=== PATIENT | female | born 1965 | race African-American/Black ===

== ENCOUNTER 2019-03-13 10:12 | Inpatient (IN) | payer OTHER ==
[~2019-03-13 10:12] MED LIST: predniSONE 10 MG TABLET (UD) PO ONE
[2019-03-13 10:57] VITALS: BMI 17.6
--- NOTE | 2019-03-13 12:02 | HP ---
CIWA Score Nausea/Vomitin Muscle Tremors: 2 Anxiety: 2 Agitation: 2 Paroxysmal Sweats: 1-Minimal Palms Moist Orientation: 0-Oriented Tacttile Disturbances: 1-Very Mild Itch/Numbness Auditory Disturbances: 1-Very Mild Visual Disturbances: 0-None Headache: 2-Mild CIWA-Ar Total Score: 13 - Admission Criteria OASAS Guidelines: Admission for Medically Managed Detox: Requires at least one of the followin. CIWA greater than 12 2. Seizures within the past 24 hours 3. Delirium tremens within the past 24 hours 4. Hallucinations within the past 24 hours 5. Acute intervention needed for co occurring medical disorder 6. Acute intervention needed for co occurring psychiatric disorder 7. Severe withdrawal that cannot be handled at a lower level of care (continued vomiting, continued diarrhea, abnormal vital signs) requiring intravenous medication and/or fluids 8. Admission ROS S - HPI Chief Complaint: i need help to stop drinking alcohol,cocaine and marijuana Allergies/Adverse Reactions: Allergies Allergy/AdvReac Type Severity Reaction Status Date / Time No Known Allergies Allergy Verified 03/13/19 19:52 History of Present Illness: this 53 years old female with alcohol,cocaine and marijuana dependence,seeking detox,withdrawal symptom, seen at [facility] for asthma seizure alcohol related last 2 days ago syncope alcohol related asthma nicotine dependence 1 pack/day,does not want nicotine dependence weight loss longest period of sobriety 2 months bipolar disorder non compliance with medication plan for out patient program and go back to school Exam Limitations: No Limitations - Ebola screening Have you traveled outside of the country in the last 21 days: No Have you had contact with anyone from an Ebola affected area: No Do you have a fever: No - Review of Systems Constitutional: Loss of Appetite, Malaise, Night Sweats, Changes in sleep, Weakness, Unintentional Wgt. Loss EENT: reports: Tearing, Nose Congestion Respiratory: reports: Other (asthma) Cardiac: reports: Palpitations GI: reports: Diarrhea, Nausea, Abdominal cramping : reports: No Symptoms Reported Musculoskeletal: reports: No Symptoms Reported, Back Pain, Muscle Pain Integumentary: reports: Dryness Neuro: reports: Headache, Tremors Endocrine: reports: No Symptoms Reported Hematology: reports: No Symptoms Reported Psychiatric: reports: No Sypmtoms Reported, Judgement Intact, Mood/Affect Appropiate, Orientated x3 Other Systems: Reviewed and Negative Patient History - Patient Medical History Hx Anemia: No Hx Asthma: Yes (on albuterol inhaler) Hx Chronic Obstructive Pulmonary Disease (COPD): No Hx Cancer: No Hx Cardiac Disorders: No Hx Congestive Heart Failure: No Hx Hypertension: No Hx Hypercholesterolemia: No Hx Pacemaker: No HX Cerebrovascular Accident: No Hx Seizures: Yes (last 03/11/19) Hx Dementia: No Hx Diabetes: No Hx Gastrointestinal Disorders: No Hx Liver Disease: No Hx Genitourinary Disorders: No Hx Sexually Transmitted Disorders: No Hx Renal Disease (ESRD): No Hx Thyroid Disease: No Hx Human Immunodeficiency Virus (HIV): No (lsat 03/07 negative) Hx Hepatitis C: No Hx Depression: No Hx Suicide Attempt: Yes (try to jump from roof at age of 20 years,stopped by mother) Hx Bipolar Disorder: Yes Hx Schizophrenia: No Other Medical History: no suicidal,no homicidal - Patient Surgical History Past Surgical History: No - PPD History Previous Implant?: Yes Documented Results: Negative w/o proof Implanted On Prior [facility] Admission?: No PPD to be Administered?: Yes - Reproductive History Patient is a Female of Child Bearing Age (11 -55 yrs old): Yes Last Menstrual Period: 05/28/14 Patient : No - Smoking Cessation Smoking history: Never smoked Have you smoked in the past 12 months: Yes Aproximately how many cigarettes per day: 20 Cigars Per Day: 0 Hx Chewing Tobacco Use: No Initiated information on smoking cessation: Yes 'Breaking Loose' booklet given: 03/13/19 - Substance & Tx. History Hx Alcohol Use: Yes Hx Substance Use: Yes Substance Use Type: Alcohol, Cocaine, Marijuana Hx Substance Use Treatment: Yes ( 2009 unknown facility) - Substances abused Alcohol Substance route: Oral Frequency: Daily Amount used: 1 pt. vodka, 1 can beer (40 oz) Age of first use: 13 Date of last use: 03/12/19 Marijuana/Hashish Substance route: Smoking Frequency: Daily Amount used: 1 bag Age of first use: 13 Date of last use: 03/12/19 Crack Substance route: Smoking Frequency: Daily Amount used: $100 Age of first use: 19 Date of last use: 03/16/19 Cocaine Substance route: Smoking Frequency: Daily Amount used: $100 Age of first use: 19 Date of last use: 03/16/19 Family Disease History - Family Disease History Family History: Denies Admission Physical Exam [facility] - Vital Signs Vital Signs: Vital Signs - 24 hr 03/13/19 03/13/19 10:44 11:03 Temperature 98 F 98 F Pulse Rate 80 80 Respiratory 18 18 Rate Blood Pressure 131/91 131/91 - Physical General Appearance: Yes: Moderate Distress, Tremorous, Irritable, Sweating, Anxious HEENTM: Yes: Normal ENT Inspection, TIAGO, Pharynx Normal Respiratory: Yes: Normal Breath Sounds, No Respiratory Distress, Wheezing Neck: Yes: Within Normal Limits, Supple, Trachea in good position Breast: Yes: Breast Exam Deferred Cardiology: Yes: Within Normal Limits, Regular Rhythm, S1, S2, Tachycardia Abdominal: Yes: Within Normal Limits, Normal Bowel Sounds, Non Tender, Soft Genitourinary: Yes: Within Normal Limits Back: Yes: Muscle Spasm Musculoskeletal: Yes: Back pain, Muscle Pain Extremities: Yes: Within Normal Limits, Normal Range of Motion, Tremors Neurological: Yes: warehouse distribution specialist II-XII NML intact, Fully Oriented, Alert, Motor Strength 5/5 Integumentary: Yes: Dry Lymphatic: Yes: Within Normal Limits - Diagnostic (1) Alcohol dependence with uncomplicated withdrawal Status: Acute (2) Cocaine dependence Status: Acute (3) Cannabis dependence Status: Acute (4) Acute exacerbation of extrinsic asthma Status: Acute (5) Alcohol related seizure Status: Acute (6) Syncope Status: Acute (7) Dehydration Status: Acute (8) Weight loss Status: Acute (9) Bipolar disorder Status: Acute (10) Suicide attempt Status: Acute Cleared for Admission [facility] - Detox or Rehab [facility] Level of Care: Medically Managed Detox Regimen/Protocol: Librium Breathalyzer - Breathalyzer Breathalyzer: 0 POC Urine test - Test device test lot number: [id number] Expiration date: 07/19/20 - Control test control: Yes - Result Urine Test Results: Negative - NO line present Urine Drug Screen - Test Device Lot number: [id number] Expiration date: 10/18/20 - Control Is test valid?: Yes - Results Drug screen NEGATIVE: No Urine drug screen results: THC-Marijuana Inpatient Rehab Admission - Rehab Decision to Admit Inpatient rehab admission?: No
[2019-03-13] MEDS ORDERED: chlordiazePOXIDE HCL 25 MG CAPSULE PO PRN (12:20)
[2019-03-13] MEDS ORDERED: MAG HYDROX/AL HYDROX/SIMETH 30 ML UNIT-DOSE CUP PO PRN (12:20)
[2019-03-13] MEDS ORDERED: ACETAMINOPHEN 325 MG TABLET (FP) PO PRN ×2 (12:20)
[2019-03-13] MEDS ORDERED: MELATONIN 5 MG TABLETS PO PRN (12:20)
[2019-03-13] MEDS ORDERED: METHOCARBAMOL 500 MG TABLET PO PRN (12:20)
[2019-03-13] MEDS ORDERED: hydrOXYzine PAMOATE 25 MG CAPSULE (FP) PO PRN (12:20)
[2019-03-13] MEDS ORDERED: MAGNESIUM HYDROX 2400MG/30ML ORAL SUSPENSION 30 ML CUP PO PRN (12:20)
[2019-03-13] MEDS ORDERED: MENTHOL/PHENOL 1 EACH UD MM PRN (12:20)
[2019-03-13] MEDS ORDERED: BISMUTH SUBSALICYLATE 262 MG/15 ML BTL PO PRN (12:20)
[2019-03-13] MEDS ORDERED: MAGNESIUM CITRATE 300 ML BOTTLE PO PRN (12:20)
[2019-03-13] MEDS ORDERED: IBUPROFEN 400 MG TABLET (FP) PO PRN (12:20)
[2019-03-13] MEDS ORDERED: ALBUTEROL SO4 8 GM HFA INHALER IH PRN (12:23)
[2019-03-13] MEDS ORDERED: ALBUTEROL SO4 2.5/IPRATROPIUM 0.5 INH SOL 3 ML VIAL.NEB. NEB PRN (12:24)
[2019-03-13] MEDS ORDERED: predniSONE 20 MG TABLET (UD) PO ONE (12:46)
[2019-03-13] MEDS: BUDESONIDE/FORMETEROL FUMARATE 80/4.5 mcg INHALER IH SCH ×2 (13:05→22:22)
[2019-03-13 14:47] LABS: HEMATOCRIT 50.7 % (32.4-45.2); HEMOGLOBIN 16.4 GM/dL (10.7-15.3); MCHC 32.3 g/dl (32.0-36.0); MEAN PLT VOLUME 8.7 fl (7.5-11.1); PLATELET COUNT 211 K/MM3 (134-434); RBC 5.64 M/mm3 (3.60-5.2); RDW 16.1 % (11.6-15.6); WHITE BLOOD COUNT 7.4 K/mm3 (4.0-10.0)
[2019-03-13 14:59] LABS: ALBUMIN 3.9 g/dl (3.4-5.0); ALK PHOS 153 U/L (45-117); ANION GAP 4 MMOL/L (8-16); BILIRUBIN,TOTAL 0.4 mg/dL (0.2-1); BLOOD UREA NITROGEN 22 mg/dL (7-18); CALCIUM 9.2 mg/dL (8.5-10.1); CHLORIDE 99 mmol/L (98-107); CO2 36 mmol/L (21-32); CREATININE 0.5 mg/dL (0.55-1.3); GLUCOSE,RANDOM 79 mg/dL (74-106); POTASSIUM 4.7 mmol/L (3.5-5.1); SGOT/AST 15 U/L (15-37); SGPT/ALT 15 U/L (13-61); SODIUM 139 mmol/L (136-145); TOT PROT 7.9 g/dl (6.4-8.2)
--- NOTE | 2019-03-13 16:19 | EKG ---
Test Reason : Blood Pressure : / mmHG Vent. Rate : 114 BPM Atrial Rate : 114 BPM P-R Int : 122 ms QRS Dur : 086 ms QT Int : 354 ms P-R-T Axes : 083 124 069 degrees QTc Int : 487 ms SINUS TACHYCARDIA WITH FREQUENT PREMATURE VENTRICULAR COMPLEXES RIGHT ATRIAL ENLARGEMENT RIGHT AXIS DEVIATION ANTERIOR INFARCT , AGE UNDETERMINED ABNORMAL ECG NO PREVIOUS ECGS AVAILABLE Confirmed by ALEX SANTIAGO MD ([id number]) on 03/13/2019 4:19:18 PM Referred By: Confirmed By:ALEX SANTIAGO MD
[2019-03-13] MEDS: chlordiazePOXIDE HCL 25 MG CAPSULE PO SCH ×2 (17:06→22:23)
[2019-03-13 18:00] VITALS: BP 113/71; PULSE 107; TEMP 98.5
--- NOTE | 2019-03-13 18:55 | PN ---
[facility] Progress Note Note: Vital Signs Temperature 98.5 F 03/13/19 17:58 Pulse Rate 107 H 03/13/19 17:58 Respiratory Rate 18 03/13/19 17:58 Blood Pressure 113/71 03/13/19 17:58 O2 Sat by Pulse Oximetry (%) reports received patient very lethargic and low O2 sat O2 Sat on unit 83% to 79 % Patient currently in detox for alcohol, prior to admission today patient was seen at [facility] for asthma exacerbation, patient has hx of DM II, Hep C, Asthma . BGM 180 Patient AOXPP, lethargic, responds to touch s1 s2 no JVD + tachycardia + ronchi skin intact, no cyanosis present +pulses present lethargy O2 2L NC Patient sent to [facility] for further evaluation, transported via [facility], called [facility] kept on hold multiple times, unable to endorse.
[2019-03-13] MEDS ORDERED: THIAMINE HCL 100 MG TABLET (FP) PO SCH (22:00)
[2019-03-14] MEDS ORDERED: PRENATAL VITAMINS W/ FOLIC ACID TABLET (FP) PO SCH (10:00)
[2019-03-14 12:16] LABS: RPR REACTIVE 1:2 (NONREACTIVE)
[2019-03-14 14:48] LABS: TREPONEMA ANTIBODY REACTIVE (NONREACTIVE)
[2019-03-14] MEDS ORDERED: chlordiazePOXIDE HCL 25 MG CAPSULE PO SCH (17:00)
[2019-03-15] MEDS ORDERED: predniSONE 20 MG TABLET (UD) PO ONE (10:00)
[2019-03-15] MEDS ORDERED: chlordiazePOXIDE HCL 10 MG CAPSULE PO PRN (17:00)
[2019-03-15] MEDS ORDERED: chlordiazePOXIDE HCL 10 MG CAPSULE PO SCH (17:00)
[2019-03-16] MEDS ORDERED: predniSONE 10 MG TABLET (UD) PO ONE (10:00)
[2019-03-16] MEDS ORDERED: chlordiazePOXIDE HCL 10 MG CAPSULE PO SCH (17:00)
[2019-03-17] MEDS ORDERED: predniSONE 5 MG TABLET (UD) PO ONE (10:00)
== END 2019-03-13 23:59 | disposition short-term general hospital (02) | DRG 897 ==
LOC: YASAS 10:12 → Y3N 12:20
PROVIDERS: ADMIT Surgery; ATTEND Surgery
PROC: HZ2ZZZZ Detoxification Services for Substance Abuse Treatment (ICD-10-PCS; principal; 2019-03-13)
DX: F10.230 Alcohol dependence with withdrawal, uncomplicated (principal); F14.20 Cocaine dependence, uncomplicated; J45.901 Unspecified asthma with (acute) exacerbation; Z68.1 Body mass index [BMI] 19.9 or less, adult; F12.20 Cannabis dependence, uncomplicated; F31.9 Bipolar disorder, unspecified; E86.0 Dehydration; R56.9 Unspecified convulsions; R55 Syncope and collapse; R63.4 Abnormal weight loss; Z91.5 Personal history of self-harm
CPT/HCPCS: 36415; 80053; 82962; 85027; 86593; 86780; 87389; 93005; 93010; 94640

== ENCOUNTER 2019-03-13 19:35 | Inpatient (IN) | payer OTHER ==
[2019-03-13] MEDS ORDERED: ALBUTEROL SO4 2.5/IPRATROPIUM 0.5 INH SOL 3 ML VIAL.NEB. NEB ONE (20:15)
--- NOTE | 2019-03-13 20:16 | PDOC ---
History of Present Illness - General Chief Complaint: Weakness Stated Complaint: WEAKNESS Time Seen by Provider: 03/13/19 20:07 - History of Present Illness Initial Comments: The pt is a 53F w/ a history of DMII, Hepatitis C, COPD/Asthma, bipolar d/o, and polysubstance abuse (marijuana, alcohol, and cocaine) who presents from [facility] for evaluation of 1 week of SOB and generalized weakness. Reportedly the weakness preceded the SOB. She states having an inhaler at home but has not been using it. Per [facility] notes, patient presented at detox yesterday and today they note she desaturated from 83 to 79% Pt presented to detox yesterday. Pt not willing to provide further history at this time. 03/13/19 20:08 Past History - Past Medical History Allergies/Adverse Reactions: Allergies Allergy/AdvReac Type Severity Reaction Status Date / Time No Known Allergies Allergy Verified 03/13/19 19:52 Home Medications: Ambulatory Orders Divalproex Sodium [Depakote] 250 mg PO TID 03/13/19 Risperidone [Risperdal] 1 mg PO BID 03/13/19 Anemia: No Asthma: Yes (on albuterol inhaler) Cancer: No Cardiac Disorders: No CVA: No COPD: No CHF: No Dementia: No Diabetes: No GI Disorders: No Disorders: No HTN: No Hypercholesterolemia: No Kidney Stones: No Liver Disease: No Seizures: Yes (last 03/11/19) Thyroid Disease: No - Reproductive History PID: No - Suicide/Smoking/Psychosocial Hx Smoking History: Unknown if ever smoked Have you smoked in the past 12 months: Yes Number of Cigarettes Smoked Daily: 20 Cigars Per Day: 0 'Breaking Loose' booklet given: 03/13/19 Hx Alcohol Use: Yes Drug/Substance Use Hx: Yes Substance Use Type: Alcohol, Cocaine, Marijuana Hx Substance Use Treatment: Yes ( 2009 unknown facility) Review of Systems - Review of Systems Able to Perform ROS?: Yes Comments:: GENERAL/CONSTITUTIONAL: No fever HEAD, EYES, EARS, NOSE AND THROAT: No change in vision. No ear pain or discharge CARDIOVASCULAR: No chest pain RESPIRATORY: Denies hemoptysis GASTROINTESTINAL: No nausea, vomiting, diarrhea or constipation GENITOURINARY: No dysuria, frequency, or change in urination._ MUSCULOSKELETAL: No joint or muscle swelling or pain. No neck or back pain._ SKIN: No rash_ NEUROLOGIC: No headache, vertigo, loss of consciousness, or change in strength/ sensation._ ENDOCRINE: No increased thirst. No abnormal weight change_ HEMATOLOGIC/LYMPHATIC: No anemia, easy bleeding, or history of blood clots._ ALLERGIC/IMMUNOLOGIC: No hives or skin allergy._ 03/13/19 20:08 Is the patient limited Hungarian proficient: No *Physical Exam - Vital Signs Last Vital Signs Temp Pulse Resp BP Pulse Ox 98.4 F 103 H 18 123/91 94 L 03/13/19 19:39 03/13/19 19:39 03/13/19 19:39 03/13/19 19:39 03/13/19 19:39 - Physical Exam Comments: GENERAL: Awake, alert, in no acute distress HEAD: No signs of trauma, normocephalic, atraumatic EYES: PERRLA, EOMI, sclera anicteric, conjunctiva clear ENT: Hearing grossly normal, nares patent, oropharynx clear without exudates LUNGS: No distress, poor inspiratory effort, mild coarse breath sounds b/l HEART: Regular rate and rhythm, normal S1 and S2, no murmurs appreciated ABDOMEN: Soft, nontender, normoactive bowel sounds. No guarding, no rebound EXTREMITIES: Normal inspection, Normal range of motion, no edema. No clubbing or cyanosis NEUROLOGICAL: Cranial nerves II through XII grossly intact. Normal speech, no focal sensorimotor deficits SKIN: Warm, Dry 03/13/19 20:08 ED Treatment Course - LABORATORY CBC & Chemistry Diagram: 03/13/19 20:55 03/13/19 20:55 Medical Decision Making - Medical Decision Making The pt is a 53F w/ a history of COPD/ashtma, bipolar d/o, EtOH abuse, cocaine abuse who presents for evaluation of 1 week of generalized weakness and SOB Ddx: COPD exacerbation, PNA, ACS, infection, less likely substance related as pt is at [facility] ED Course Labs sent ECG CXR Duo-neb IH x3 Solumedrol 125mg IV once 03/13/19 20:43 ECG NSR; HR 93; QTc 469; no ST elevation/depression Pt w/ improved oxygenation s/p duo-nebs Continues to be in O2, no O2 at home Pt w/o tremors, tachycardia or anxiety, will continue to monitor for withdrawal Trop I neg Lytes wnl No CRISTINA LFTs wnl No leukocytosis No anemia Plan for admission for COPD exacerbation 03/14/19 00:34 *DC/Admit/Observation/Transfer Diagnosis at time of Disposition: Shortness of breath, Generalized weakness - Referrals - Patient Instructions - Post Discharge Activity
[2019-03-13] MEDS ORDERED: methylPREDNISolone NA SUCC 125 MG/2 ML VIAL IVPB ONE (20:17)
[2019-03-13] MEDS: ALBUTEROL SO4 2.5/IPRATROPIUM 0.5 INH SOL 3 ML VIAL.NEB. NEB SCH ×2 (20:59→22:16)
[2019-03-13 21:15] LABS: BASO % 0.3 % (0-2.0); EOS % 0.2 % (0-4.5); HEMATOCRIT 46.5 % (32.4-45.2); HEMOGLOBIN 15.3 GM/dL (10.7-15.3); LYMPH % 7.3 % (8-40); MCH 29.2 pg (25.7-33.7); MCHC 32.8 g/dl (32.0-36.0); MEAN CELL VOLUME 89.1 fl (80-96); MEAN PLT VOLUME 8.5 fl (7.5-11.1); MONO % 3.6 % (3.8-10.2); NEUT % 88.6 % (42.8-82.8); PLATELET COUNT 207 K/MM3 (134-434); RBC 5.22 M/mm3 (3.60-5.2); RDW 15.6 % (11.6-15.6); WHITE BLOOD COUNT 5.4 K/mm3 (4.0-10.0)
[2019-03-13] MEDS ORDERED: ALBUTEROL SO4 0.083% IH SOL 2.5 MG/3 ML VIAL.NEB. NEB ONE ×2 (21:18→22:04)
[2019-03-13] MEDS ORDERED: MAGNESIUM SULF 50% (8.12 MEQ/2 ML-1 GM VIAL) IVPB ONE (21:18)
[2019-03-13] MEDS ORDERED: SODIUM CHLORIDE 0.9% 1000 ML INFUS.BAG IV ONE (21:18)
[2019-03-13 21:21] LABS: VENOUS PC02 68.6 mmHg (41-51); VENOUS PH 7.36 (7.31-7.41)
--- NOTE | 2019-03-13 21:35 | PDOC ---
Documentation entered by Faustino Richards SCRIBE, acting as scribe for Carla Desai DO. Carla Desai DO: This documentation has been prepared by the Susie rangel Nirvannie, SCRIBE, under my direction and personally reviewed by me in its entirety. I confirm that the documentation accurately reflects all work, treatment, procedures, and medical decision making performed by me. Attending Attestation - Resident Resident Name: Ricardo Duarte - ED Attending Attestation I have performed the following: I have examined & evaluated the patient, The case was reviewed & discussed with the resident, I agree w/resident's findings & plan - HPI HPI: 03/13/19 21:07 The patient is a 53 year old female, with a significant past medical history of DMII, Hepatitis C, COPD/Asthma and polysubstance abuse (marijuana, alcohol, and cocaine), who presents to the emergency department via EMS from [facility] with, 1 week of worsening diffuse weakness and shortness of breath. As per EMR, patient presented at [facility] detox yesterday and today they note she desaturated from 83 to 79%, prompting her arrival to the ED. Pt is a poor historian thus, history was obtained primarily via EMR. She denies recent chest pain or palpitations. Allergies: NKDA Social history: Polysubstance abuse (marijuana, alcohol, and cocaine) @ [facility]. - Physicial Exam PE: 03/13/19 21:42 Constitutional: +Responsive to painful stimuli. No acute distress. Head: Normocephalic. Atraumatic Eyes: PERRL. EOMI. Conjunctivae are not pale. ENT: Mucous membranes are moist and intact. Posterior pharynx without exudates or erythema. Uvula midline. Neck: Supple. Full ROM. No lymphadenopathy. Cardiovascular: +Tachycardic. Distal pulses are 2+ and symmetric. Pulmonary/Chest: +Diffuse wheezing. No rales or rhonchi. Abdominal: Soft and non-distended. There is no tenderness. No rebound, guarding or rigidity. No organomegaly. No palpable masses. Good bowel sounds. Back: No CVA tenderness. Musculoskeletal: No edema. No cyanosis. No clubbing. Full range of motion in all extremities. No calf tenderness. Radial/pedal pulses are intact and 2+ bilaterally Skin: Skin is warm and dry. No petechiae. No purpura. Neurological: +Responsive to painful stimuli. Cranial nerves II-XII are grossly intact. Strength is grossly symmetric. No sensory deficits. - Medical Decision Making 03/13/19 21:32 I, Dr. Carla Desai, DO, attest that this document has been prepared under my direction and personally reviewed by me in its entirety. I further attest, that it accurately reflects all work, treatment, procedures and medical decision -making performed by me. 03/13/19 21:32 a/p: 53yo female sent from [facility] for sob -pt in detox for etoh, cocaine, marijuana use -pt with hx of copd/asthma, has not been using her meds -pt with diffuse wheezing on exam -pt responsive to painful stimuli, sob -nebs started, solumedrol given -labs sent, ekg, cxr ordered -concern for asthma/copd exacerbation -abg ordered and sent -will need admission 03/13/19 21:58 pt with chronic hypercapnea with compensation cxr clear concern for copd exacerbation- pt will need admission 03/13/19 22:49 resident discussed the case with sharan who accepts the patient to service
[2019-03-13 21:37] LABS: ARTERIAL BLD GAS O2 SATURATION 96.7 % (95-98); ARTERIAL BLOOD GAS BASE EXCESS 9.2 meq/l (-2-2); ARTERIAL BLOOD GAS PCO2 66.8 mmHg (35-45); ARTERIAL BLOOD GAS PO2 82.7 mmHg (80-105); ARTERIAL BLOOD GAS pH 7.37 (7.35-7.45)
[2019-03-13 21:44] LABS: ALBUMIN 3.4 g/dl (3.4-5.0); ALK PHOS 135 U/L (45-117); ANION GAP 3 MMOL/L (8-16); BILIRUBIN,TOTAL 0.4 mg/dL (0.2-1); BLOOD UREA NITROGEN 23 mg/dL (7-18); CALCIUM 9.1 mg/dL (8.5-10.1); CHLORIDE 98 mmol/L (98-107); CO2 39 mmol/L (21-32); CREATININE 0.5 mg/dL (0.55-1.3); GLUCOSE,RANDOM 172 mg/dL (74-106); POTASSIUM 4.5 mmol/L (3.5-5.1); SGOT/AST 13 U/L (15-37); SGPT/ALT 13 U/L (13-61); SODIUM 139 mmol/L (136-145); TOT PROT 6.6 g/dl (6.4-8.2)
[2019-03-13] MEDS ORDERED: AZITHROMYCIN IVPB 500 MG in DEXTROSE 5%-WATER - 250 ML IVPB ONE (21:55)
[2019-03-13] MEDS ORDERED: methylPREDNISolone NA SUCC 125 MG/2 ML VIAL ONE (22:05)
[2019-03-13] MEDS ORDERED: AZITHROMYCIN 200 MG/5 ML BOTTLE ONE (22:05)
[2019-03-13 23:08] LABS: CARBOXYHEMOGLOBIN 5.5 % (0-2)
--- NOTE | 2019-03-13 23:13 | HP ---
CHIEF COMPLAINT: chest tightness PCP: [facility] HISTORY OF PRESENT ILLNESS: 53 y/o F with PMH DM2, Hep C, COPD, ?asthma, polysubstance abuse (MJ, alcohol, cocaine), past DT's, bipolar d/o, who presents to the ED for 1 week hx weakness and SOB. As per pt, over the past week, she has felt SOB with a "tightness in her chest." She has been at [facility] for detox from alcohol and states that she was placed on librium protocol while there. Today she desat to 79% thus she was brought to the ED for further evaluation. Is not on 02 at baseline. Last drink was 2-3 days ago. Pt is noncompliant with her inhalers and other meds such as depakote for her bipolar disorder. Upon further questioning, pt replied "I'm sleepy. Get away from me." ROS unobtainable for this reason. During my exam , pt was on venti receiving a neb tx, sat 93%. Upon chart review from , she was dependent on vodka and beer w/heavy drinking hx since her teen years. Also past smoker (20 cigs/day since teen), and cocaine user. ER course was notable for: (1) zithromax (2) medrol 125 (3) mg sulfate (4) NS 1L (5) nebs Recent Travel: denies PAST MEDICAL HISTORY: as above PAST SURGICAL HISTORY: unable to obtain, pt refused Social History: pt refused details. as in chart Smoking: past smoker; 20 cigs/day since teen Alcohol: 1 pt vodka and 1 beer (40 oz) daily since age 13 Drugs: marijuana 1 bag daily since age 13, cocaine Family History: refused Allergies No Known Allergies Allergy (Verified 03/13/19 19:52) HOME MEDICATIONS: Home Medications Medication Instructions Recorded Divalproex Sodium [Depakote] 250 mg PO TID 03/13/19 Risperidone [Risperdal] 1 mg PO BID 03/13/19 meds need to be verified with [facility] pt also not compliant. REVIEW OF SYSTEMS CONSTITUTIONAL: +lethargy Absent: fever, chills, diaphoresis, generalized weakness, malaise, loss of appetite, weight change HEENT: Absent: rhinorrhea, nasal congestion, throat pain, throat swelling, difficulty swallowing, mouth swelling, ear pain, eye pain, visual changes CARDIOVASCULAR: Absent: chest pain, syncope, palpitations, irregular heart rate, lightheadedness , peripheral edema RESPIRATORY: +SOB, wheezing Absent: cough, dyspnea with exertion, orthopnea, wheezing, stridor, hemoptysis GASTROINTESTINAL: Absent: abdominal pain, abdominal distension, nausea, vomiting, diarrhea, constipation, melena, hematochezia GENITOURINARY: Absent: dysuria, frequency, urgency, hesitancy, hematuria, flank pain, genital pain MUSCULOSKELETAL: Absent: myalgia, arthralgia, joint swelling, back pain, neck pain SKIN: Absent: rash, itching, pallor HEMATOLOGIC/IMMUNOLOGIC: Absent: easy bleeding, easy bruising, lymphadenopathy, frequent infections ENDOCRINE: Absent: unexplained weight gain, unexplained weight loss, heat intolerance, cold intolerance NEUROLOGIC: Absent: headache, focal weakness or paresthesias, dizziness, unsteady gait, seizure, mental status changes, bladder or bowel incontinence PSYCHIATRIC: Absent: anxiety, depression, suicidal or homicidal ideation, hallucinations. PHYSICAL EXAMINATION Vital Signs 03/13/19 19:39 Temperature 98.4 F Pulse Rate 103 H Respiratory 18 Rate Blood Pressure 123/91 O2 Sat by Pulse 94 L Oximetry (%) GENERAL: Lethargy. in no acute distress. On venti mask receiving neb tx. sat 93 HEAD: Normal with no signs of trauma. EYES: Pupils equal, round and reactive to light, extraocular movements intact, sclera anicteric, conjunctiva clear. EARS, NOSE, THROAT: Ears normal, nares patent, oropharynx clear without exudates. Moist mucous membranes. NECK: Normal range of motion, supple LUNGS: +expiratory wheezes. no rhonchi or crackles HEART: Regular rate and rhythm, normal S1 and S2 without murmur, rub or gallop. ABDOMEN: Soft, nontender, not distended, normoactive bowel sounds, no guarding, no rebound, no masses. LOWER EXTREMITIES: 2+ pt pulses, warm, well-perfused. No calf tenderness. No peripheral edema. NEUROLOGICAL: Cranial nerves II-XII intact. PSYCHIATRIC: Cooperative. Good eye contact. SKIN: Warm, dry Laboratory Tests 03/13/19 03/13/19 03/13/19 20:55 20:55 20:55 WBC 5.4 Hgb 15.3 Hct 46.5 H Plt Count 207 ABG pO2 at Pt Temp Sodium 139 Potassium 4.5 Chloride 98 Carbon Dioxide 39 H Anion Gap 3 L BUN 23 H Creatinine 0.5 L Creat Clearance w eGFR 129.06 Random Glucose 172 H Alkaline Phosphatase 135 H Troponin I < 0.02 03/13/19 21:25 Plt Count ABG pH 7.37 ABG pCO2 at Pt Temp 66.8 H ABG pO2 at Pt Temp 82.7 ABG HCO3 37.3 H ABG O2 Sat (Measured) 96.7 ABG O2 Content 19.9 ABG Base Excess 9.2 H Chloride CXR: barrel chest, without acute process seen. however f/u official report EKG: NSR rate 93bpm, qtc 469ms. no acute st-t wave changes. ASSESSMENT/PLAN: 53 y/o F with PMH DM2, Hep C, COPD, ?asthma, polysubstance abuse (MJ, alcohol, cocaine), past DT's, bipolar d/o, who presents to the ED for 1 week hx weakness and SOB. #Acute hypoxic, hypercapnic RF 2/2 COPD exacerbation -with chronic resp acidosis with metabolic compensation -may also be 2/2 librium she received at [facility] -will check utox for inciting fx -co2 retention with improvement on BiPAP -c/w medrol 40 q8h -duonebs GRACIE, nebs PRN -no abx as without infectious process -tele monitoring -IS -pulm consult: Dr. Zhu #DM2 -f/u A1c -ISS, BGM ACHS #polysubstance abuse -detox consult: Dr. Lopez -does not appear to be withdrawing at this time last drink 2 days ago. VS hemodynamically stable cont to monitor #F/E/N no IVF req at this time continue to follow lytes NPO. asp risk #PPX DVT: hep 5k sq tid #Dispo admit to tele Visit type - Emergency Visit Emergency Visit: Yes ED Registration Date: 03/13/19 Care time: The patient presented to the Emergency Department on the above date and was hospitalized for further evaluation of their emergent condition. - New Patient This patient is new to me today: Yes Date on this admission: 03/14/19 - Critical Care Critical Care patient: No
--- NOTE | 2019-03-13 23:25 | CONSULT ---
Consultation: REQUESTING PROVIDER: Dr. Casey CONSULT REQUEST: We have been asked to medically evaluate this patient for lethargy/ hypercapnia. HISTORY OF PRESENT ILLNESS: This is a 53 year old female with polysubstance abuse , alcohol, crack cocaine, tobacco, with a history of COPD, DM, HEP C non compliant with medications, who was sent over from [facility] due to dyspnea and hypoxia 84-79%. ER ABG with hypercapnia with compensation. Given IV steroid , nebulizer treatment and empiric antibiotic. Patient now on NC sating 95%. REVIEW OF SYSTEMS: n/a PHYSICAL EXAMINATION Vital Signs - 24 hr 03/13/19 19:39 Temperature 98.4 F Pulse Rate 103 H Respiratory 18 Rate Blood Pressure 123/91 O2 Sat by Pulse 94 L Oximetry (%) GENERAL: lethargic on NC; arousable; asked for food and gets annoyed when having vitals and lab checked HEAD: Normal with no signs of trauma. Eyes: pinpoint pupils LUNGS: course breath sounds b/l bases HEART: Regular rate and rhythm, normal S1 and S2 without murmur, rub or gallop. ABDOMEN: Soft, nontender, not distended, normoactive bowel sounds, no guarding, no rebound, no masses. No hepatomegaly or splenomegaly. UPPER EXTREMITIES: 2+ pulses, warm, well-perfused. No cyanosis. No clubbing. Cap refill <2 seconds. No peripheral edema. LOWER EXTREMITIES: 2+ pulses, warm, well-perfused. No calf tenderness. No peripheral edema. NEUROLOGICAL: lethargic PSYCHIATRIC: non Cooperative. ppor eye contact. waked up to ask for food; get bothers when you try and examine SKIN: Warm, dry, normal turgor, no rashes or lesions noted. Laboratory Results - last 24 hr 03/13/19 03/13/19 03/13/19 20:55 20:55 20:55 WBC 5.4 RBC 5.22 H Hgb 15.3 Hct 46.5 H MCV 89.1 MCH 29.2 MCHC 32.8 RDW 15.6 Plt Count 207 MPV 8.5 Absolute Neuts (auto) 4.8 Neutrophils % 88.6 H Lymphocytes % 7.3 L Monocytes % 3.6 L Eosinophils % 0.2 Basophils % 0.3 Nucleated RBC % 0 Anticoagulation Therapy Puncture Site ABG pH ABG pCO2 at Pt Temp ABG pO2 at Pt Temp ABG HCO3 ABG O2 Sat (Measured) ABG O2 Content ABG Base Excess Elbert Test VBG pH POC VBG pCO2 POC VBG pO2 VBG HCO3 VBG O2 Sat (Gray) VBG Base Excess Carboxyhemoglobin Methemoglobin O2 Delivery Device Oxygen Flow Rate Vent Mode Vent Rate Mechanical Rate Pressure Support Vent Sodium 139 Potassium 4.5 Chloride 98 Carbon Dioxide 39 H Anion Gap 3 L BUN 23 H Creatinine 0.5 L Creat Clearance w eGFR 129.06 Random Glucose 172 H Calcium 9.1 Total Bilirubin 0.4 AST 13 L ALT 13 Alkaline Phosphatase 135 H Troponin I < 0.02 Total Protein 6.6 Albumin 3.4 03/13/19 03/13/19 03/13/19 20:55 21:25 22:50 WBC RBC Hgb Hct MCV MCH MCHC RDW Plt Count MPV Absolute Neuts (auto) Neutrophils % Lymphocytes % Monocytes % Eosinophils % Basophils % Nucleated RBC % Anticoagulation Therapy No Result Required. Puncture Site No Result Required. ABG pH 7.37 ABG pCO2 at Pt Temp 66.8 H ABG pO2 at Pt Temp 82.7 ABG HCO3 37.3 H ABG O2 Sat (Measured) 96.7 ABG O2 Content 19.9 ABG Base Excess 9.2 H Elbert Test No Result Required. VBG pH 7.36 POC VBG pCO2 68.6 H POC VBG pO2 121 H VBG HCO3 37.9 H VBG O2 Sat (Gray) 99.2 H VBG Base Excess 9.4 H Carboxyhemoglobin 5.5 H Methemoglobin 0.4 O2 Delivery Device No Result Required. Oxygen Flow Rate No Result Required. Vent Mode No Result Required. Vent Rate No Result Required. Mechanical Rate No Result Required. Pressure Support Vent No Result Required. Sodium Potassium Chloride Carbon Dioxide Anion Gap BUN Creatinine Creat Clearance w eGFR Random Glucose Calcium Total Bilirubin AST ALT Alkaline Phosphatase Troponin I Total Protein Albumin Active Medications Generic Name Dose Route Start Last Admin Trade Name Freq PRN Reason Stop Dose Admin Albuterol Sulfate 1 amp 03/13/19 23:59 Ventolin 0.083% Nebulizer Soln - NEB Q4H PRN SHORT OF BREATH/WHEEZING Albuterol/Ipratropium 1 amp 03/14/19 02:00 Duoneb - NEB RQID GRACIE Heparin Sodium (Porcine) 5,000 unit 03/14/19 06:00 Heparin - SQ TID [facility] Insulin Aspart 1 vial 03/14/19 07:00 Novolog Vial Sliding Scale - SQ ACHS [facility] Protocol Methylprednisolone Sodium Succinate 40 mg 03/14/19 02:00 Solu-Medrol - IVPUSH Q8H-IV [facility] ASSESSMENT/PLAN: This is a 53 year old female with a history of polysubstance abuse, hep C, DM, COPD, who presents with dyspnea and respiratory failure. #acute on chronic hypoxic/hypercapniec respiratory failure; #respiratory acidosis with secondary metabolic alkalosis #acute exacerbation of COPD #polysubstance abuse #hx hep C -ABG looks to be chronic resp acidosis with metabolic compensation -patient sating 95%on NC 2L -issue of lethargy :co2 retaining vs component of psycogenic behavior; as patient woke up to ask for food/drink as her leisure and does not want to be bothered with IV or vital monitoring; she also has pinpoint pupils and was given librium at [facility] ,that can attribute to lethargy -if clinically further declines; repeat ABG to monitor for CO2 retaining -cont empiric antibiotics -cont scheduled and prn broncodilators -cont IV steroids -incentive spirometer -dvt ppl can monitor on tele Dispo: We will continue to follow the patient. Thank you for this consultative opportunity. Visit type - Emergency Visit Emergency Visit: Yes ED Registration Date: 03/13/19 Care time: The patient presented to the Emergency Department on the above date and was hospitalized for further evaluation of their emergent condition. - New Patient This patient is new to me today: Yes Date on this admission: 03/13/19 - Critical Care Critical Care patient: No
[2019-03-13] MEDS ORDERED: ALBUTEROL SO4 0.083% IH SOL 2.5 MG/3 ML VIAL.NEB. NEB PRN (23:59)
--- NOTE | 2019-03-14 00:17 | PN ---
Teaching Attending Note Name of Resident: Jackie Casey ATTENDING PHYSICIAN STATEMENT I saw and evaluated the patient. I reviewed the resident's note and discussed the case with the resident. I agree with the resident's findings and plan as documented. SUBJECTIVE: Patient is a 53 year old woman with a PMH of NIDDM, Hepatitis C, COPD/Asthma and polysubstance abuse (marijuana, alcohol, and cocaine), who presents to the ER from [facility] with 1 week of worsening diffuse weakness and shortness of breath. As per EMR, patient presented at [facility] for detox yesterday and today they noted she desaturated from 83 to 79%. Patient is somnolent and unwilling to open her eyes to provide more information. She denies recent chest pain or palpitations. Reportedly go some librium at [facility]. Would not tell us if she is a smoker. ABG in the ER notable for high PCO2. Was initially on a nonrebreathing mask but has been switched to Bipap. Though deeply somnolent, she woke up to eat a turkey sandwich and promptly went back to sleep. Urine toxicology pending. OBJECTIVE: Somnolent but arousable Vital Signs Period Temp Pulse Resp BP Sys/Lee Pulse Ox Last 24 Hr 98.4 F-98.5 F 96-106 17-18 93-123/65-91 94-98 HEENT: No Jaundice; conjuctival injection. No eye discharge, PERRLA, EOMI. Normocephalic, atraumatic. External ears are normal and hearing is grossly intact. No nasal discharge. Neck: Supple, nontender. No palpable adenopathy or thyromegaly. No JVD Chest: Good effort. Clear to auscultation and percussion. No wheezing. Good air entry. Heart: Regular. No S3, rub or murmur Abdomen: Not distended, soft, nontender and no HSM. No rebound or guarding. Normal bowel sounds. Ext: Peripheral pulses intact. No leg edema. Skin: Warm and dry. No petechiae, rash or ecchymosis. Neuro: Somnolent but arousable. Would not answer questions or follow commands. Sensation grossly intact in all four extremities and DTR are symmetric. Psych: Unable to assess. Current Medications Generic Name Dose Route Start Last Admin Trade Name Freq PRN Reason Stop Dose Admin Albuterol Sulfate 1 amp 04/25/19 23:59 Ventolin 0.083% Nebulizer Soln - NEB Q4H PRN SHORT OF BREATH/WHEEZING Albuterol/Ipratropium 1 amp 03/14/19 02:00 Duoneb - NEB RQID GRACIE Heparin Sodium (Porcine) 5,000 unit 03/14/19 06:00 Heparin - SQ TID [facility] Insulin Aspart 1 vial 03/14/19 07:00 Novolog Vial Sliding Scale - SQ ACHS [facility] Protocol Methylprednisolone Sodium Succinate 40 mg 03/14/19 02:00 Solu-Medrol - IVPUSH Q8H-IV [facility] Home Medications Medication Instructions Recorded Divalproex Sodium [Depakote] 250 mg PO TID 03/13/19 Risperidone [Risperdal] 1 mg PO BID 03/13/19 Abnormal Lab Results 03/13/19 03/13/19 03/13/19 20:55 20:55 20:55 RBC 5.22 H Hct 46.5 H Neutrophils % 88.6 H Lymphocytes % 7.3 L Monocytes % 3.6 L ABG pH ABG pCO2 at Pt Temp ABG pO2 at Pt Temp ABG HCO3 ABG O2 Sat (Measured) ABG Base Excess POC VBG pCO2 68.6 H POC VBG pO2 121 H VBG HCO3 37.9 H VBG O2 Sat (Gray) 99.2 H VBG Base Excess 9.4 H Carboxyhemoglobin Carbon Dioxide 39 H Anion Gap 3 L BUN 23 H Creatinine 0.5 L Random Glucose 172 H AST 13 L Alkaline Phosphatase 135 H 03/13/19 03/13/19 03/14/19 21:25 22:50 00:30 RBC Hct Neutrophils % Lymphocytes % Monocytes % ABG pH 7.27 L ABG pCO2 at Pt Temp 66.8 H 84.6 H* ABG pO2 at Pt Temp 67.0 L ABG HCO3 37.3 H 38.0 H ABG O2 Sat (Measured) 90.6 L ABG Base Excess 9.2 H 7.6 H POC VBG pCO2 POC VBG pO2 VBG HCO3 VBG O2 Sat (Gray) VBG Base Excess Carboxyhemoglobin 5.5 H Carbon Dioxide Anion Gap BUN Creatinine Random Glucose AST Alkaline Phosphatase ASSESSMENT AND PLAN: 1. Acute hypercarpnic respiratory failure - No obvious precipitating factor. Inhaled illicit drugs may cause acute inflammation and bronchospasm. No wheezing by the time i saw her. No acute infiltrate on CXR. Will treat with duoneb and IV solumedrol. ABG showd progressive CO2 retention. If no improvement on Bipap, will intubate her. Her mental status may be due to toxic ingestion or CO2 retention. Will give her a dose of Narcan while urine toxicology pending. 2. DM No diabetes medication in her drug list. Will contact her pharmacy and implement sliding scale insulin regimen. Provide comprehensive diabetes care with patient teaching and counseling about the importance of adherence to prescribed diabetes regimen, euglycemia, eye care and foot care. 3. Polysubstance abuse/Alcohol abuse - Implement [facility] alcohol withdrawal protocol and do neurochecks. Implement seizure, fall and aspiration precautions. Treat with thiamine and folic acid and monitor electrolytes (Ca,Mg, K,P). Counseled patient about abstaining from alcohol and illicit drugs. Will consult electronic warfare specialist and refer to alcohol detox upon discharge. 4. DVT prophylaxis - Lovenox 40 mg SQ q 24 hours. 5. Advance directives - Full code
[2019-03-14 01:03] LABS: ARTERIAL BLD GAS O2 SATURATION 90.6 % (95-98); ARTERIAL BLOOD GAS BASE EXCESS 7.6 meq/l (-2-2); ARTERIAL BLOOD GAS pH 7.27 (7.35-7.45)
[2019-03-14 01:05] LABS: ARTERIAL BLOOD GAS PCO2 84.6 mmHg (35-45)
[2019-03-14] MEDS ORDERED: NALOXONE HCL 0.4 MG/ML VIAL IVPUSH ONE (03:11)
[2019-03-14 03:15] LABS: ARTERIAL BLD GAS O2 SATURATION 88.9 % (95-98); ARTERIAL BLOOD GAS BASE EXCESS 7.6 meq/l (-2-2); ARTERIAL BLOOD GAS PCO2 69.6 mmHg (35-45); ARTERIAL BLOOD GAS PO2 58.2 mmHg (80-105); ARTERIAL BLOOD GAS pH 7.34 (7.35-7.45)
[2019-03-14] MEDS ORDERED: NALOXONE HCL 0.4 MG/ML VIAL ONE (04:06)
[2019-03-14] MEDS ORDERED: methylPREDNISolone NA SUCC 40 MG/1 ML VIAL ONE ×2 (04:07→08:45)
[2019-03-14] MEDS: methylPREDNISolone NA SUCC 40 MG/1 ML VIAL IVPUSH SCH ×3 (04:16→18:55)
[2019-03-14] MEDS: ALBUTEROL SO4 2.5/IPRATROPIUM 0.5 INH SOL 3 ML VIAL.NEB. NEB SCH ×4 (04:17→20:30)
[2019-03-14] MEDS ORDERED: HEPARIN NA (PORCINE) 5,000 UNITS/ML 1ML VIAL ONE (06:15)
[2019-03-14] MEDS: HEPARIN NA (PORCINE) 5,000 UNITS/ML 1ML VIAL SQ SCH ×3 (06:19→22:58)
[2019-03-14 06:59] LABS: BASO % 0.2 % (0-2.0); HEMATOCRIT 47.9 % (32.4-45.2); HEMOGLOBIN 15.8 GM/dL (10.7-15.3); LYMPH % 1.6 % (8-40); MCH 29.3 pg (25.7-33.7); MEAN CELL VOLUME 88.5 fl (80-96); MEAN PLT VOLUME 9.4 fl (7.5-11.1); MONO % 4.5 % (3.8-10.2); NEUT % 93.7 % (42.8-82.8); PLATELET COUNT 194 K/MM3 (134-434); RBC 5.41 M/mm3 (3.60-5.2); RDW 15.3 % (11.6-15.6); WHITE BLOOD COUNT 9.7 K/mm3 (4.0-10.0)
[2019-03-14 07:27] LABS: ALBUMIN 3.4 g/dl (3.4-5.0); ALK PHOS 137 U/L (45-117); ANION GAP 4 MMOL/L (8-16); BILIRUBIN,TOTAL 0.7 mg/dL (0.2-1); BLOOD UREA NITROGEN 24 mg/dL (7-18); CALCIUM 8.8 mg/dL (8.5-10.1); CHLORIDE 98 mmol/L (98-107); CO2 36 mmol/L (21-32); CREATININE 0.5 mg/dL (0.55-1.3); GLUCOSE,RANDOM 140 mg/dL (74-106); MAGNESIUM 2.4 mg/dL (1.8-2.4); PHOSPHOROUS 4.1 mg/dL (2.5-4.9); POTASSIUM 4.3 mmol/L (3.5-5.1); SGOT/AST 10 U/L (15-37); SGPT/ALT 13 U/L (13-61); SODIUM 138 mmol/L (136-145); TOT PROT 6.8 g/dl (6.4-8.2)
[2019-03-14] MEDS: INSULIN SLIDING SCALE (NOVOLOG) 1 VIAL SQ SCH ×4 (08:40→22:58)
[2019-03-14] MEDS ORDERED: ALBUTEROL SO4 2.5/IPRATROPIUM 0.5 INH SOL 3 ML VIAL.NEB. NEB ONE (08:44)
[2019-03-14] MEDS: AZITHROMYCIN IVPB 500 MG/250 ML BAG IVPB SCH (10:27)
[2019-03-14] MEDS ORDERED: LORazepam 1 MG TABLET PO PRN (10:59)
--- NOTE | 2019-03-14 11:22 | EKG ---
Test Reason : Blood Pressure : / mmHG Vent. Rate : 093 BPM Atrial Rate : 093 BPM P-R Int : 134 ms QRS Dur : 090 ms QT Int : 378 ms P-R-T Axes : 074 104 060 degrees QTc Int : 469 ms NORMAL SINUS RHYTHM RIGHT ATRIAL ENLARGEMENT RIGHTWARD AXIS INCOMPLETE RBBB POOR R WAVE PROGRESSION Confirmed by TIA HEREDIA MD ([id number]) on 03/14/2019 11:21:42 AM Referred By: Confirmed By:TIA HEREDIA MD
[2019-03-14 11:23] LABS: ANISOCYTOSIS 1+; MACROCYTOSIS 0; OVALOCYTE 2+; PLATELET ESTIMATE NORMAL; TEAR DROP CELLS 1+
[2019-03-14] MEDS ORDERED: INSULIN (NOVOLOG) ASPART 100 UNITS/ML 10ML VIAL ONE (13:31)
[2019-03-14 17:27] VITALS: BMI 19.4
[2019-03-14] MEDS ORDERED: FLU VACCINE QUAD 60 MCG/0.5 ML (MDV 18-19) IM ONE (17:28)
[2019-03-14] MEDS ORDERED: PNEUMOC 13-VAL CONJ-DIP CRM/PF 0.5 ML DISP.SYRIN IM ONE (17:30)
[2019-03-14] MEDS ORDERED: PNEUMOCOCCAL 23 VACCINE 0.5 ML VIAL IM ONE (17:45)
--- NOTE | 2019-03-14 19:32 | PN ---
Teaching Attending Note Name of Resident: Eren Stephens ATTENDING PHYSICIAN STATEMENT I saw and evaluated the patient. I reviewed the resident's note and discussed the case with the resident. I agree with the resident's findings and plan as documented. SUBJECTIVE: Feels okay, SOB improving. No fever/chills. OBJECTIVE: Afebrile, Hemodynamically Stable. Last Vital Signs Temp Pulse Resp BP Pulse Ox 98.1 F 75 20 102/60 99 03/14/19 18:02 03/14/19 18:02 03/14/19 18:02 03/14/19 18:02 03/14/19 17:42 HEENT - Atraumatic, Normocephalic. Heart - S1, S2, RRR Lungs - decreased air entry bilaterally with occasional wheeze Abdomen - soft, non-tender. Bowel Sounds normal. Extremities - no calf tenderness Neuro - AAO X 3. Moving all 4 extremities. Laboratory Results - last 24 hr 03/13/19 03/13/19 03/13/19 20:55 20:55 20:55 WBC 5.4 RBC 5.22 H Hgb 15.3 Hct 46.5 H MCV 89.1 MCH 29.2 MCHC 32.8 RDW 15.6 Plt Count 207 MPV 8.5 Absolute Neuts (auto) 4.8 Neutrophils % 88.6 H Neutrophils % (Manual) Band Neutrophils % Lymphocytes % 7.3 L Lymphocytes % (Manual) Monocytes % 3.6 L Monocytes % (Manual) Eosinophils % 0.2 Eosinophils % (Manual) Basophils % 0.3 Basophils % (Manual) Myelocytes % (Man) Promyelocytes % (Man) Blast Cells % (Manual) Nucleated RBC % 0 Metamyelocytes Hypochromia Platelet Estimate Polychromasia Poikilocytosis Anisocytosis Microcytosis Macrocytosis Tear Drop Cells Ovalocytes Anticoagulation Therapy Puncture Site ABG pH ABG pCO2 at Pt Temp ABG pO2 at Pt Temp ABG HCO3 ABG O2 Sat (Measured) ABG O2 Content ABG Base Excess Elbert Test VBG pH POC VBG pCO2 POC VBG pO2 VBG HCO3 VBG O2 Sat (Gray) VBG Base Excess Carboxyhemoglobin Methemoglobin O2 Delivery Device Oxygen Flow Rate Vent Mode Vent Rate Mechanical Rate Pressure Support Vent Sodium 139 Potassium 4.5 Chloride 98 Carbon Dioxide 39 H Anion Gap 3 L BUN 23 H Creatinine 0.5 L Creat Clearance w eGFR 129.06 POC Glucometer Random Glucose 172 H Hemoglobin A1c % Calcium 9.1 Phosphorus Magnesium Total Bilirubin 0.4 AST 13 L ALT 13 Alkaline Phosphatase 135 H Troponin I < 0.02 Total Protein 6.6 Albumin 3.4 03/13/19 03/13/19 03/13/19 20:55 20:55 21:25 WBC RBC Hgb Hct MCV MCH MCHC RDW Plt Count MPV Absolute Neuts (auto) Neutrophils % Neutrophils % (Manual) Band Neutrophils % Lymphocytes % Lymphocytes % (Manual) Monocytes % Monocytes % (Manual) Eosinophils % Eosinophils % (Manual) Basophils % Basophils % (Manual) Myelocytes % (Man) Promyelocytes % (Man) Blast Cells % (Manual) Nucleated RBC % Metamyelocytes Hypochromia Platelet Estimate Polychromasia Poikilocytosis Anisocytosis Microcytosis Macrocytosis Tear Drop Cells Ovalocytes Anticoagulation Therapy No Result Required. Puncture Site No Result Required. ABG pH 7.37 ABG pCO2 at Pt Temp 66.8 H ABG pO2 at Pt Temp 82.7 ABG HCO3 37.3 H ABG O2 Sat (Measured) 96.7 ABG O2 Content 19.9 ABG Base Excess 9.2 H Elbert Test No Result Required. VBG pH 7.36 POC VBG pCO2 68.6 H POC VBG pO2 121 H VBG HCO3 37.9 H VBG O2 Sat (Gray) 99.2 H VBG Base Excess 9.4 H Carboxyhemoglobin Methemoglobin O2 Delivery Device No Result Required. Oxygen Flow Rate No Result Required. Vent Mode No Result Required. Vent Rate No Result Required. Mechanical Rate No Result Required. Pressure Support Vent No Result Required. Sodium Potassium Chloride Carbon Dioxide Anion Gap BUN Creatinine Creat Clearance w eGFR POC Glucometer Random Glucose Hemoglobin A1c % 4.8 Calcium Phosphorus Magnesium Total Bilirubin AST ALT Alkaline Phosphatase Troponin I Total Protein Albumin 03/13/19 03/14/19 03/14/19 22:50 00:30 03:10 WBC RBC Hgb Hct MCV MCH MCHC RDW Plt Count MPV Absolute Neuts (auto) Neutrophils % Neutrophils % (Manual) Band Neutrophils % Lymphocytes % Lymphocytes % (Manual) Monocytes % Monocytes % (Manual) Eosinophils % Eosinophils % (Manual) Basophils % Basophils % (Manual) Myelocytes % (Man) Promyelocytes % (Man) Blast Cells % (Manual) Nucleated RBC % Metamyelocytes Hypochromia Platelet Estimate Polychromasia Poikilocytosis Anisocytosis Microcytosis Macrocytosis Tear Drop Cells Ovalocytes Anticoagulation Therapy No Result Required. No Result Required. Puncture Site No Result Required. Right radial ABG pH 7.27 L 7.34 L ABG pCO2 at Pt Temp 84.6 H* 69.6 H ABG pO2 at Pt Temp 67.0 L 58.2 L ABG HCO3 38.0 H 36.1 H ABG O2 Sat (Measured) 90.6 L 88.9 L ABG O2 Content 18.0 18.1 ABG Base Excess 7.6 H 7.6 H Elbert Test No Result Required. No Result Required. VBG pH POC VBG pCO2 POC VBG pO2 VBG HCO3 VBG O2 Sat (Gray) VBG Base Excess Carboxyhemoglobin 5.5 H Methemoglobin 0.4 O2 Delivery Device No Result Required. Bipap Oxygen Flow Rate No Result Required. 30% Vent Mode No Result Required. S/t Vent Rate No Result Required. 16 Mechanical Rate No Result Required. No Result Required. Pressure Support Vent No Result Required. 14/6 Sodium Potassium Chloride Carbon Dioxide Anion Gap BUN Creatinine Creat Clearance w eGFR POC Glucometer Random Glucose Hemoglobin A1c % Calcium Phosphorus Magnesium Total Bilirubin AST ALT Alkaline Phosphatase Troponin I Total Protein Albumin 03/14/19 03/14/19 03/14/19 05:55 05:55 07:19 WBC 9.7 RBC 5.41 H Hgb 15.8 H Hct 47.9 H MCV 88.5 MCH 29.3 MCHC 33.0 RDW 15.3 Plt Count 194 MPV 9.4 D Absolute Neuts (auto) 9.1 H Neutrophils % 93.7 H Neutrophils % (Manual) 87.2 H Band Neutrophils % 4.9 Lymphocytes % 1.6 L D Lymphocytes % (Manual) 1.0 L Monocytes % 4.5 Monocytes % (Manual) 6 Eosinophils % 0.0 D Eosinophils % (Manual) 0.0 Basophils % 0.2 Basophils % (Manual) 0.0 Myelocytes % (Man) 0 Promyelocytes % (Man) 0 Blast Cells % (Manual) 0 Nucleated RBC % 0 Metamyelocytes 0 Hypochromia 0 Platelet Estimate Normal Polychromasia 0 Poikilocytosis 2+ Anisocytosis 1+ Microcytosis 0 Macrocytosis 0 Tear Drop Cells 1+ Ovalocytes 2+ Anticoagulation Therapy Puncture Site ABG pH ABG pCO2 at Pt Temp ABG pO2 at Pt Temp ABG HCO3 ABG O2 Sat (Measured) ABG O2 Content ABG Base Excess Elbert Test VBG pH POC VBG pCO2 POC VBG pO2 VBG HCO3 VBG O2 Sat (Gray) VBG Base Excess Carboxyhemoglobin Methemoglobin O2 Delivery Device Oxygen Flow Rate Vent Mode Vent Rate Mechanical Rate Pressure Support Vent Sodium 138 Potassium 4.3 Chloride 98 Carbon Dioxide 36 H Anion Gap 4 L BUN 24 H Creatinine 0.5 L Creat Clearance w eGFR 129.06 POC Glucometer 131 Random Glucose 140 H Hemoglobin A1c % Calcium 8.8 Phosphorus 4.1 Magnesium 2.4 Total Bilirubin 0.7 AST 10 L ALT 13 Alkaline Phosphatase 137 H Troponin I Total Protein 6.8 Albumin 3.4 03/14/19 03/14/19 13:28 18:03 WBC RBC Hgb Hct MCV MCH MCHC RDW Plt Count MPV Absolute Neuts (auto) Neutrophils % Neutrophils % (Manual) Band Neutrophils % Lymphocytes % Lymphocytes % (Manual) Monocytes % Monocytes % (Manual) Eosinophils % Eosinophils % (Manual) Basophils % Basophils % (Manual) Myelocytes % (Man) Promyelocytes % (Man) Blast Cells % (Manual) Nucleated RBC % Metamyelocytes Hypochromia Platelet Estimate Polychromasia Poikilocytosis Anisocytosis Microcytosis Macrocytosis Tear Drop Cells Ovalocytes Anticoagulation Therapy Puncture Site ABG pH ABG pCO2 at Pt Temp ABG pO2 at Pt Temp ABG HCO3 ABG O2 Sat (Measured) ABG O2 Content ABG Base Excess Elbert Test VBG pH POC VBG pCO2 POC VBG pO2 VBG HCO3 VBG O2 Sat (Gray) VBG Base Excess Carboxyhemoglobin Methemoglobin O2 Delivery Device Oxygen Flow Rate Vent Mode Vent Rate Mechanical Rate Pressure Support Vent Sodium Potassium Chloride Carbon Dioxide Anion Gap BUN Creatinine Creat Clearance w eGFR POC Glucometer 206 184 Random Glucose Hemoglobin A1c % Calcium Phosphorus Magnesium Total Bilirubin AST ALT Alkaline Phosphatase Troponin I Total Protein Albumin Current Medications Generic Name Dose Route Start Last Admin Trade Name Freq PRN Reason Stop Dose Admin Albuterol Sulfate 1 amp 03/13/19 23:59 Ventolin 0.083% Nebulizer Soln - NEB Q4H PRN SHORT OF BREATH/WHEEZING Albuterol/Ipratropium 1 amp 03/14/19 02:00 03/14/19 12:05 Duoneb - NEB 1 amp RQID GRACIE Administration Heparin Sodium (Porcine) 5,000 unit 03/14/19 06:00 03/14/19 16:09 Heparin - SQ 5,000 unit TID GRACIE Administration Azithromycin 500 mg in 250 mls @ 250 mls/hr 03/14/19 10:00 03/14/19 10:27 Zithromax 500mg Ivpb (Pre-Docked) IVPB 250 mls/hr DAILY GRACIE Administration Insulin Aspart 1 vial 03/14/19 07:00 03/14/19 18:05 Novolog Vial Sliding Scale - SQ 2 units ACHS GRACIE Administration Protocol Lorazepam 0.5 mg 03/15/19 11:00 Ativan - PO 03/16/19 10:59 Q4H PRN Symptoms of Withdrawal Lorazepam 1 mg 03/14/19 10:59 Ativan - PO 03/15/19 10:58 Q4H PRN Symptoms of Withdrawal Methylprednisolone Sodium Succinate 40 mg 03/14/19 02:00 03/14/19 18:55 Solu-Medrol - IVPUSH 40 mg Q8H-IV GRACIE Administration ASSESSMENT AND PLAN: 53 year old female with DM 2, Hepatitis C, COPD, Asthma, Polysubstance Abuse (MJ , Alcohol, Cocaine), Bipolar Disorder, presented from with hypoxia down to 79 % on RA with reported 1 week history of increasing SOB, generalized weakness. 1. Acute Hypoxcic and Hypercapneic Respiratory Failure secondary to COPD Exacerbation Chronic compensated respiratory acidosis CXR - R basal atelectasis Initially placed on BiPAP but does not tolerate. DuoNebs, Azithromycin, Solumedrol Pulm consult. Incentive Spirometry 2. Polysubstance Abuse (MJ, cocaine, Alcohol) Transfered from where she was receiving Librium No clear evidence of alcohol withdrawal. Addiction Medicine consulted. On Ativan PRN 3. DM 2 - Novolog as per sliding scale. DVT Px - Heparin SQ
[2019-03-14 20:03] LABS: COCAINE, UR NEGATIVE ng/ml (CUTOFF=300); PHENCYCLIDINE,URINE NEGATIVE ng/ml (CUTOFF=25); URINE AMPHETAMINES NEGATIVE ng/ml (CUTOFF=500); URINE BARBITURATES NEGATIVE ng/ml (CUTOFF=200)
[2019-03-14 20:04] LABS: METHADONE, UR NEGATIVE ng/ml (CUTOFF=300); OPIATES, URI NEGATIVE ng/ml (CUTOFF=300)
[2019-03-14 20:08] LABS: URINE BENZODIAZEPINES POSITIVE ng/ml (CUTOFF=200)
--- NOTE | 2019-03-14 22:35 | PN ---
[facility] Progress Note (SOAP) Subjective: 53 years old female, patient referred for consultation for alcohol,cocaine and marijuana dependence, poor historian due to current medical condition, reports use of vodka 1/2 pint/day . PMHX : asthma, seizure alcohol related last 2 days ago, syncope alcohol related nicotine dependence 1 pack/d, hep C, DM II bipolar disorder non compliance with medication Objective: CBC, BMP 03/14/19 05:55 03/14/19 05:55 heent : NCAT EOMI Responds to verbal stimuli Assessment: Alcohol dependence Plan: prn Ativan
[2019-03-15] MEDS: methylPREDNISolone NA SUCC 40 MG/1 ML VIAL IVPUSH SCH ×2 (01:33→09:15)
[2019-03-15] MEDS: INSULIN SLIDING SCALE (NOVOLOG) 1 VIAL SQ SCH ×3 (06:47→16:55)
[2019-03-15] MEDS: HEPARIN NA (PORCINE) 5,000 UNITS/ML 1ML VIAL SQ SCH ×2 (06:48→13:41)
[2019-03-15] MEDS: ALBUTEROL SO4 2.5/IPRATROPIUM 0.5 INH SOL 3 ML VIAL.NEB. NEB SCH ×3 (07:50→15:10)
[2019-03-15] MEDS: AZITHROMYCIN IVPB 500 MG/250 ML BAG IVPB SCH (09:14)
[2019-03-15] MEDS ORDERED: AZITHROMYCIN IVPB 500 MG/250 ML BAG IVPB SCH (10:00)
--- NOTE | 2019-03-15 10:33 | PN ---
Physical Exam: SUBJECTIVE: Patient seen and examined OBJECTIVE: Vital Signs Period Temp Pulse Resp BP Sys/Lee Pulse Ox Last 24 Hr 96 F-98.2 F 73-84 18-20 101-123/60-76 94-99 GENERAL: The patient is awake, alert, and fully oriented, in no acute distress. HEAD: Normal with no signs of trauma. EYES: PERRL, extraocular movements intact, sclera anicteric, conjunctiva clear. No ptosis. ENT: Ears normal, nares patent, oropharynx clear without exudates, moist mucous membranes. NECK: Trachea midline, full range of motion, supple. LUNGS: Breath sounds equal, clear to auscultation bilaterally, no wheezes, no crackles, no accessory muscle use. HEART: Regular rate and rhythm, S1, S2 without murmur, rub or gallop. ABDOMEN: Soft, nontender, nondistended, normoactive bowel sounds, no guarding, no rebound, no hepatosplenomegaly, no masses. EXTREMITIES: 2+ pulses, warm, well-perfused, no edema. NEUROLOGICAL: Cranial nerves II through XII grossly intact. Normal speech, gait not observed. PSYCH: Normal mood, normal affect. SKIN: Warm, dry, normal turgor, no rashes or lesions noted Laboratory Results - last 24 hr 03/14/19 03/14/19 03/14/19 05:55 13:28 18:03 Neutrophils % (Manual) 87.2 H Band Neutrophils % 4.9 Lymphocytes % (Manual) 1.0 L Monocytes % (Manual) 6 Eosinophils % (Manual) 0.0 Basophils % (Manual) 0.0 Myelocytes % (Man) 0 Promyelocytes % (Man) 0 Blast Cells % (Manual) 0 Metamyelocytes 0 Hypochromia 0 Platelet Estimate Normal Polychromasia 0 Poikilocytosis 2+ Anisocytosis 1+ Microcytosis 0 Macrocytosis 0 Tear Drop Cells 1+ Ovalocytes 2+ POC Glucometer 206 184 Opiates Screen Methadone Screen Barbiturate Screen Phencyclidine Screen Ur Amphetamines Screen MDMA (Ecstasy) Screen Benzodiazepines Screen Cocaine Screen U Marijuana (THC) Screen Influenza A (Rapid) Influenza B (Rapid) 03/14/19 03/14/19 03/15/19 18:20 22:48 00:05 Neutrophils % (Manual) Band Neutrophils % Lymphocytes % (Manual) Monocytes % (Manual) Eosinophils % (Manual) Basophils % (Manual) Myelocytes % (Man) Promyelocytes % (Man) Blast Cells % (Manual) Metamyelocytes Hypochromia Platelet Estimate Polychromasia Poikilocytosis Anisocytosis Microcytosis Macrocytosis Tear Drop Cells Ovalocytes POC Glucometer 124 Opiates Screen Negative Methadone Screen Negative Barbiturate Screen Negative Phencyclidine Screen Negative Ur Amphetamines Screen Negative MDMA (Ecstasy) Screen Negative Benzodiazepines Screen Positive A* Cocaine Screen Negative U Marijuana (THC) Screen Positive A* Influenza A (Rapid) Negative Influenza B (Rapid) Negative 03/15/19 06:44 Neutrophils % (Manual) Band Neutrophils % Lymphocytes % (Manual) Monocytes % (Manual) Eosinophils % (Manual) Basophils % (Manual) Myelocytes % (Man) Promyelocytes % (Man) Blast Cells % (Manual) Metamyelocytes Hypochromia Platelet Estimate Polychromasia Poikilocytosis Anisocytosis Microcytosis Macrocytosis Tear Drop Cells Ovalocytes POC Glucometer 140 Opiates Screen Methadone Screen Barbiturate Screen Phencyclidine Screen Ur Amphetamines Screen MDMA (Ecstasy) Screen Benzodiazepines Screen Cocaine Screen U Marijuana (THC) Screen Influenza A (Rapid) Influenza B (Rapid) Active Medications Generic Name Dose Route Start Last Admin Trade Name Freq PRN Reason Stop Dose Admin Albuterol Sulfate 1 amp 03/13/19 23:59 Ventolin 0.083% Nebulizer Soln - NEB Q4H PRN SHORT OF BREATH/WHEEZING Albuterol/Ipratropium 1 amp 03/14/19 02:00 03/15/19 07:50 Duoneb - NEB 1 amp RQID GRACIE Administration Heparin Sodium (Porcine) 5,000 unit 03/14/19 06:00 03/15/19 06:48 Heparin - SQ 5,000 unit TID GRACIE Administration Azithromycin 500 mg in 250 mls @ 250 mls/hr 03/14/19 10:00 03/15/19 09:14 Zithromax 500mg Ivpb (Pre-Docked) IVPB 250 mls/hr DAILY GRACIE Administration Insulin Aspart 1 vial 03/14/19 07:00 03/15/19 06:47 Novolog Vial Sliding Scale - SQ Not Given ACHS GRACIE Protocol Lorazepam 0.5 mg 03/15/19 11:00 Ativan - PO 03/16/19 10:59 Q4H PRN Symptoms of Withdrawal Lorazepam 1 mg 03/14/19 10:59 Ativan - PO 03/15/19 10:58 Q4H PRN Symptoms of Withdrawal Methylprednisolone Sodium Succinate 40 mg 03/14/19 02:00 03/15/19 09:15 Solu-Medrol - IVPUSH 40 mg Q8H-IV GRACIE Administration ASSESSMENT/PLAN:
--- NOTE | 2019-03-15 10:37 | PN ---
Teaching Attending Note Name of Resident: Remy Galan ATTENDING PHYSICIAN STATEMENT I saw and evaluated the patient. I reviewed the resident's note and discussed the case with the resident. I agree with the resident's findings and plan as documented. SUBJECTIVE: SOB improved. No fever/chills. OBJECTIVE: Afebrile, Hemodynamically Stable. Sitting up eating breakfast. Last Vital Signs Temp Pulse Resp BP Pulse Ox 97.9 F 73 18 101/67 94 L 03/15/19 05:40 03/15/19 05:40 03/15/19 05:40 03/15/19 05:40 03/14/19 21:00 Heart - S1, S2, RRR Lungs - good air entry - no wheeze. Abdomen - soft, non-tender. Bowel Sounds normal. Extremities - no calf tenderness Neuro - AAO X 3. Moving all 4 extremities. Laboratory Results - last 24 hr 03/14/19 03/14/19 03/14/19 05:55 13:28 18:03 Neutrophils % (Manual) 87.2 H Band Neutrophils % 4.9 Lymphocytes % (Manual) 1.0 L Monocytes % (Manual) 6 Eosinophils % (Manual) 0.0 Basophils % (Manual) 0.0 Myelocytes % (Man) 0 Promyelocytes % (Man) 0 Blast Cells % (Manual) 0 Metamyelocytes 0 Hypochromia 0 Platelet Estimate Normal Polychromasia 0 Poikilocytosis 2+ Anisocytosis 1+ Microcytosis 0 Macrocytosis 0 Tear Drop Cells 1+ Ovalocytes 2+ POC Glucometer 206 184 Opiates Screen Methadone Screen Barbiturate Screen Phencyclidine Screen Ur Amphetamines Screen MDMA (Ecstasy) Screen Benzodiazepines Screen Cocaine Screen U Marijuana (THC) Screen Influenza A (Rapid) Influenza B (Rapid) 03/14/19 03/14/19 03/15/19 18:20 22:48 00:05 Neutrophils % (Manual) Band Neutrophils % Lymphocytes % (Manual) Monocytes % (Manual) Eosinophils % (Manual) Basophils % (Manual) Myelocytes % (Man) Promyelocytes % (Man) Blast Cells % (Manual) Metamyelocytes Hypochromia Platelet Estimate Polychromasia Poikilocytosis Anisocytosis Microcytosis Macrocytosis Tear Drop Cells Ovalocytes POC Glucometer 124 Opiates Screen Negative Methadone Screen Negative Barbiturate Screen Negative Phencyclidine Screen Negative Ur Amphetamines Screen Negative MDMA (Ecstasy) Screen Negative Benzodiazepines Screen Positive A* Cocaine Screen Negative U Marijuana (THC) Screen Positive A* Influenza A (Rapid) Negative Influenza B (Rapid) Negative 03/15/19 06:44 Neutrophils % (Manual) Band Neutrophils % Lymphocytes % (Manual) Monocytes % (Manual) Eosinophils % (Manual) Basophils % (Manual) Myelocytes % (Man) Promyelocytes % (Man) Blast Cells % (Manual) Metamyelocytes Hypochromia Platelet Estimate Polychromasia Poikilocytosis Anisocytosis Microcytosis Macrocytosis Tear Drop Cells Ovalocytes POC Glucometer 140 Opiates Screen Methadone Screen Barbiturate Screen Phencyclidine Screen Ur Amphetamines Screen MDMA (Ecstasy) Screen Benzodiazepines Screen Cocaine Screen U Marijuana (THC) Screen Influenza A (Rapid) Influenza B (Rapid) Current Medications Generic Name Dose Route Start Last Admin Trade Name Freq PRN Reason Stop Dose Admin Albuterol Sulfate 1 amp 03/13/19 23:59 Ventolin 0.083% Nebulizer Soln - NEB Q4H PRN SHORT OF BREATH/WHEEZING Albuterol/Ipratropium 1 amp 03/14/19 02:00 03/15/19 07:50 Duoneb - NEB 1 amp RQID GRACIE Administration Heparin Sodium (Porcine) 5,000 unit 03/14/19 06:00 03/15/19 06:48 Heparin - SQ 5,000 unit TID GRACIE Administration Azithromycin 500 mg in 250 mls @ 250 mls/hr 03/14/19 10:00 03/15/19 09:14 Zithromax 500mg Ivpb (Pre-Docked) IVPB 250 mls/hr DAILY GRACIE Administration Insulin Aspart 1 vial 03/14/19 07:00 03/15/19 06:47 Novolog Vial Sliding Scale - SQ Not Given ACHS GRACIE Protocol Lorazepam 0.5 mg 03/15/19 11:00 Ativan - PO 03/16/19 10:59 Q4H PRN Symptoms of Withdrawal Lorazepam 1 mg 03/14/19 10:59 Ativan - PO 03/15/19 10:58 Q4H PRN Symptoms of Withdrawal Methylprednisolone Sodium Succinate 40 mg 03/14/19 02:00 03/15/19 09:15 Solu-Medrol - IVPUSH 40 mg Q8H-IV GRACIE Administration ASSESSMENT AND PLAN: 53 year old female with DM 2, Hepatitis C, COPD, Asthma, Polysubstance Abuse (MJ , Alcohol, Cocaine), Bipolar Disorder, presented from with hypoxia down to 79 % on RA with reported 1 week history of increasing SOB, generalized weakness. 1. Acute Hypoxcic and Hypercapneic Respiratory Failure secondary to COPD Exacerbation Chronic compensated respiratory acidosis CXR - R basal atelectasis Flu negative Initially placed on BiPAP but does not tolerate, now saturating well on RA Continue DuoNebs and Azithromycin/Prednisone for 5 days total on discharge. 2. Polysubstance Abuse (MJ, cocaine, Alcohol) Transfered from No clear evidence of ongoing alcohol withdrawal. Addiction Medicine consulted - on Ativan PRN - for transfer back to today ( if accepted) or DC home. 3. DM 2 - Novolog as per sliding scale. 4. Bipolar Disorder - on Depakote and Risperdial as per patient. DVT Px - Heparin SQ
[2019-03-15] MEDS ORDERED: LORazepam 0.5 MG TABLET PO PRN (11:00)
--- NOTE | 2019-03-15 11:26 | DS ---
Physical Exam: SUBJECTIVE: Patient seen and examined at bedside. No acute complaints OBJECTIVE: Vital Signs Period Temp Pulse Resp BP Sys/Lee Pulse Ox Last 24 Hr 96 F-98.3 F 73-84 18-20 101-123/60-76 92-99 PHYSICAL EXAM GENERAL: A&Ox3, no acute distress EYES: PERRLA, EOMI ENT: Moist mucus membranes NECK: No JVD LUNGS: CTA, no wheezes HEART: RRR, no murmurs ABDOMEN: Soft, nontender, BS present MUSCULOSKELETAL: No CVA Tenderness EXTREMITIES: 2+ pulses, no edema. NEUROLOGICAL: Cranial nerves II-XII intact. LABS Laboratory Results - last 24 hr 03/14/19 03/14/19 03/14/19 05:55 13:28 18:03 Neutrophils % (Manual) 87.2 H Band Neutrophils % 4.9 Lymphocytes % (Manual) 1.0 L Monocytes % (Manual) 6 Eosinophils % (Manual) 0.0 Basophils % (Manual) 0.0 Myelocytes % (Man) 0 Promyelocytes % (Man) 0 Blast Cells % (Manual) 0 Metamyelocytes 0 Hypochromia 0 Platelet Estimate Normal Polychromasia 0 Poikilocytosis 2+ Anisocytosis 1+ Microcytosis 0 Macrocytosis 0 Tear Drop Cells 1+ Ovalocytes 2+ POC Glucometer 206 184 Opiates Screen Methadone Screen Barbiturate Screen Phencyclidine Screen Ur Amphetamines Screen MDMA (Ecstasy) Screen Benzodiazepines Screen Cocaine Screen U Marijuana (THC) Screen Influenza A (Rapid) Influenza B (Rapid) 03/14/19 03/14/19 03/15/19 18:20 22:48 00:05 Neutrophils % (Manual) Band Neutrophils % Lymphocytes % (Manual) Monocytes % (Manual) Eosinophils % (Manual) Basophils % (Manual) Myelocytes % (Man) Promyelocytes % (Man) Blast Cells % (Manual) Metamyelocytes Hypochromia Platelet Estimate Polychromasia Poikilocytosis Anisocytosis Microcytosis Macrocytosis Tear Drop Cells Ovalocytes POC Glucometer 124 Opiates Screen Negative Methadone Screen Negative Barbiturate Screen Negative Phencyclidine Screen Negative Ur Amphetamines Screen Negative MDMA (Ecstasy) Screen Negative Benzodiazepines Screen Positive A* Cocaine Screen Negative U Marijuana (THC) Screen Positive A* Influenza A (Rapid) Negative Influenza B (Rapid) Negative 03/15/19 03/15/19 06:44 11:04 Neutrophils % (Manual) Band Neutrophils % Lymphocytes % (Manual) Monocytes % (Manual) Eosinophils % (Manual) Basophils % (Manual) Myelocytes % (Man) Promyelocytes % (Man) Blast Cells % (Manual) Metamyelocytes Hypochromia Platelet Estimate Polychromasia Poikilocytosis Anisocytosis Microcytosis Macrocytosis Tear Drop Cells Ovalocytes POC Glucometer 140 221 Opiates Screen Methadone Screen Barbiturate Screen Phencyclidine Screen Ur Amphetamines Screen MDMA (Ecstasy) Screen Benzodiazepines Screen Cocaine Screen U Marijuana (THC) Screen Influenza A (Rapid) Influenza B (Rapid) HOSPITAL COURSE: Date of Admission:03/13/19 53 y/o F with PMH DM2, Hep C, COPD, ?asthma, polysubstance abuse (MJ, alcohol, cocaine), past DT's, bipolar d/o, who presented to the ED for 1 week hx weakness and SOB. As per pt, over the past week, she has felt SOB with a "tightness in her chest." She has been at [facility] for detox from alcohol and states that she was placed on librium protocol while there. On admission, she desaturated to 79% thus she was brought to the ED for further evaluation. She is not on 02 at baseline. Last drink was 2-3 days prior to presentation. Pt is noncompliant with her inhalers and other meds such as depakote for her bipolar disorder. Patient was admitted for the treatment of acute hypoxic respiratory failure 2/2 COPD exacerbation. Was given duonebs, azithromycin and solumedrol. She was placed on ativan for detox. Her oxygenation improved and stopped wheezing. She was able to be discharged on azithromycin and prednisone as well as duonebs back to [facility] to finish detox. Date of Discharge: 03/15/19 Minutes to complete discharge: 37 Discharge Summary Reason For Visit: SHORTNESS OF BREATH,WEAKNESS,CHRONIC OBSTRUCTIVE Current Active Problems Generalized weakness (Acute) Shortness of breath (Acute) Condition: Improved - Instructions Diet, Activity, Other Instructions: You were admitted for the treatment of COPD exacerbation. Your breathing has improved with nebulizers, steroids, and antibiotics. You will go back to [facility] to finish detox Medical recommendations Take Azithromycin 250mg once a day for 3 days starting tomorrow Take Prednisone 40mg once a day for 3 more days then stop Please finish detox as per protocol at [facility] If you experience severe shortness of breath, chest pain, fevers or chills, please return to the emergency department for evaluation Disposition: TRANSFER ACUTE CARE/OTHER HOSP - Home Medications Comprehensive Discharge Medication List: Ambulatory Orders Azithromycin 250 mg PO DAILY #3 tablet 03/15/19 Prednisone [Deltasone] 40 mg PO DAILY #6 tablet 03/15/19 This patient is new to me today: No Emergency Visit: No Critical Care patient: No - Discharge Referral Referred to [facility] Med [facility] No
[2019-03-15 18:13] VITALS: BP 118/74; PULSE 85; TEMP 98.3
== END 2019-03-15 18:35 | disposition home or self-care (01) | DRG 190 ==
LOC: JER 19:35 → JERBED 22:18 → J4S 03-14 15:05
PROVIDERS: ADMIT Internal Medicine
DX: J44.1 Chronic obstructive pulmonary disease with (acute) exacerbation (principal); J96.21 Acute and chronic respiratory failure with hypoxia; J96.22 Acute and chronic respiratory failure with hypercapnia; F14.20 Cocaine dependence, uncomplicated; E87.2 Acidosis; J98.11 Atelectasis; E87.3 Alkalosis; F31.9 Bipolar disorder, unspecified; E11.9 Type 2 diabetes mellitus without complications; B19.20 Unspecified viral hepatitis C without hepatic coma; Z91.14 Patient's other noncompliance with medication regimen; F12.20 Cannabis dependence, uncomplicated; F10.20 Alcohol dependence, uncomplicated
CPT/HCPCS: 36415; 36600; 71045-TC-FY; 80053; 80307; 82375; 82803; 82962; 83036; 83050; 83735; 84100; 84484; 85025; 87804; 90688; 90732; 93005; 93010; 94640; 94660; 99285-25; G0008; G0009; J1644; J7030